=== PATIENT | male | born 1995 | race Caucasian/White ===

== ENCOUNTER 2017-11-15 21:25 | Emergency (ER) | payer BC ==
[~2017-11-15] VITALS: Ht 175.3 cm; Wt 73.6 kg
[2017-11-15 21:40] VITALS: TEMP 36.6; Ht 175.3 cm; Wt 73.6 kg
--- NOTE | 2017-11-15 23:24 | EMERGENCY ROOM VISIT NOTE ---
History First contact with patient: 22:18 Chief Complaint: WRIST PAIN Stated Complaint: LEFT WRIST HAS BEEN HURTING FOR 2 MONTHS History of Present Illness The patient is a 22 year old male who presents to the Emergency Room with complaints of "left wrist has been hurting for 2 months" the patient states that while at the gym he was performing curls and thinks that he injured his left wrist. He is right-hand dominant. He states that the pain went away but a few weeks ago he reinjured it. He states he has been wearing a brace but notes that he went to the gym again yesterday and the pain returned. He rates the overall pain is a 7/10 when it occurs. He notes it is more of a sharp stabbing sensation. He denies any previous trauma or injury. Review of Systems A complete 6-point Review of Systems was discussed with the patient, with pertinent positives and negatives listed in the History of Present Illness. All remaining Review of Systems questions can be considered negative unless otherwise specified. Past Medical/Surgical History No pertinent. Family History No pertinent. Social History Smoking Status: Current Every Day Smoker Patient is a [employer] student and lives locally. Physical Exam Vital Signs Date Time Temp Pulse Resp B/P (MAP) Pulse Ox O2 Delivery O2 Flow Rate FiO2 11/15/17 23:42 81 18 94 11/15/17 21:40 36.6 81 18 94 Room Air Physical Exam VITAL SIGNS - Vital signs and nursing notes were reviewed. Stable. GENERAL -22 [id number] male appearing his stated age who is in no acute distress. Communicates well with provider and answers questions appropriately. SKIN - Without rashes. HEAD - NC/AT. EXTREMITIES - No clubbing or peripheral cyanosis. There is no tenderness to palpation overlying the left wrist. Full range of motion noted. He is neurovascularly intact in this region with excellent pulse. No bony tenderness. No proximal or distal joint tenderness. Crystal Calibrator strength excellent. Medical Decision & Procedures ER Provider Diagnostic Interpretation: L WRIST W/NAVICULAR MIN 3 VIEWS CLINICAL HISTORY: 22 years-old Male presenting with L wrist pain. At medial and lateral joint space. w/movement. TECHNIQUE: Frontal, bilateral oblique, lateral, and scaphoid views of the left wrist were obtained. COMPARISON: None. FINDINGS: No acute fracture or malalignment. No advanced degenerative change. No radiographic soft tissue abnormality. IMPRESSION: No acute osseous injury. Electronically signed by: Andrea Escobedo M.D. 11/16/2017 7:33 AM Dictated Date/Time: 11/16/2017 7:24 AM Medical Decision Patient was seen and evaluated as above. In room D3 review was performed of nursing notes and vital signs. After obtaining a thorough history and physical examination the above work up was performed. X-ray obtained. The by myself and found to be negative. He was placed in a thumb spica and is to follow with orthopedics, with number provided. He was educated upon worrisome symptoms which to return. I suspect likely tendinitis/tenosynovitis/sprain from overuse. The patient was educated upon management, had questions answered prior to discharge, and was discharged home in good condition. In the evaluation and treatment of this patient, the following differential diagnoses were considered: Wrist Sprain, Wrist Fracture, Wrist Dislocation, Scapholunate Dissociation, Carpal Fracture, Metacarpal Fracture, Radial Styloid Process Fracture, Ulnar Styloid Process Fracture, or Carpal Tunnel Syndrome. Impression Primary Impression: Wrist pain, left Departure Information Dispostion Home / Self-Care Condition GOOD Referrals No Doctor, Assigned (PCP) Andrea Mccall MD Patient Instructions [facility] Additional Instructions You have been treated in the Emergency Department for Wrist Pain. For pain control, you can use the following [id number] medicines (if >12 yo): - Regular strength (325mg/tab) Tylenol (acetaminophen) 2 tabs every 4-6 hours as needed. Do not exceed 12 tablets in a 24 hour period. Avoid taking more than 3 grams (3000 mg) of Tylenol per day. This includes any other sources of acetaminophen you may take on a regular basis. - Regular strength (200 mg/tab) Advil (ibuprofen) 1-2 tabs every 4-6 hours as needed. Do not exceed a dose of 3200 mg per day. If this is a recent injury (<24 hrs), ice can be applied to the area of pain for the first 3 days to help decrease pain and inflammation. You have been provided the number for an Orthopaedic Surgeon. You should call this number as soon as possible to establish a follow-up visit from today's Emergency Department visit. Keep the brace/splint in place until evaluated by Orthopedics. Return to the Emergency Department if your current symptoms worsen despite treatment course outlined above, or if you develop any of the following symptoms : intractable pain despite aforementioned treatment course or new onset of numbness or tingling of the fingers.
[2017-11-15 23:42] VITALS: PULSE 81; O2SAT 94
--- NOTE | 2017-11-16 07:34 | DIAGNOSTIC IMAGING REPORT ---
L WRIST W/NAVICULAR MIN 3 VIEWS CLINICAL HISTORY: 22 years-old Male presenting with L wrist pain. At medial and lateral joint space. w/movement. TECHNIQUE: Frontal, bilateral oblique, lateral, and scaphoid views of the left wrist were obtained. COMPARISON: None. FINDINGS: No acute fracture or malalignment. No advanced degenerative change. No radiographic soft tissue abnormality. IMPRESSION: No acute osseous injury. Electronically signed by: Andrea Escobedo M.D. 11/16/2017 7:33 AM Dictated Date/Time: 11/16/2017 7:24 AM
== END 2017-11-15 23:43 | disposition home or self-care (01) ==
LOC: C.EDB 21:26 → C.EDD 23:43
DX: M25.532 Pain in left wrist (principal); F17.200 Nicotine dependence, unspecified, uncomplicated